=== PATIENT | female | born 1985 | race African-American/Black ===

== ENCOUNTER 2017-03-01 10:17 | Emergency (ER) | payer MEDICAID ==
[~2017-03-01] VITALS: Ht 154.9 cm; Wt 64.0 kg
[2017-03-01] MEDS ORDERED: KETOROLAC 30MG/ML VIAL IV STA (11:46)
[2017-03-01] MEDS ORDERED: SODIUM CHLORIDE 0.9% 1,000 ML IV ONE (11:46)
[2017-03-01 12:12] VITALS: BP 136/64
[2017-03-01 12:18] LABS: CLARITY URINE CLEAR (CLEAR); COLOR URINE YELLOW (YELLOW); GLUCOSE URINE NEGATIVE (NEGATIVE); KETONES URINE NEGATIVE (NEGATIVE); LEUKOCYTE ESTERASE URINE TRACE (NEGATIVE); NITRITE URINE NEGATIVE (NEGATIVE); OCCULT BLOOD URINE NEGATIVE (NEGATIVE); PROTEIN URINE NEGATIVE (NEGATIVE); SPECIFIC GRAVITY URINE 1.006 (1.005-1.030); UROBILINOGEN URINE 0.2 E.U./dL (0.2-1.0)
[2017-03-01 12:49] LABS: SQUAMOUS EPITHELIAL CELL URINE 1+ /lpf (RARE/1+)
[2017-03-01 12:50] LABS: BACTERIA URINE TRACE
[2017-03-01 12:51] LABS: RBC URINE 0-2 /hpf (0-2)
== END 2017-03-01 13:44 | disposition home or self-care (01) ==
LOC: ER 11:45
DX: R10.9 Unspecified abdominal pain (principal); M54.5 Low back pain; Z90.49 Acquired absence of other specified parts of digestive tract
CPT/HCPCS: 81001; 81025; 96361; 96374; 99284; J1885; J7030; Z7610